=== PATIENT | male | born 1980 | race Caucasian/White ===

== ENCOUNTER 2020-06-10 20:02 | Emergency (ER) | payer OTHER ==
[2020-06-10 20:10] VITALS: TEMP 98.1
[2020-06-10] MEDS ORDERED: SODIUM CHLORIDE 0.9% 1,000 ML IV STA (20:19)
[2020-06-10] MEDS ORDERED: IBUPROFEN 800 MG TAB PO STA (20:20)
--- NOTE | 2020-06-10 20:27 | ED ---
Seizure HPI - General Chief Complaint: Seizure Stated Complaint: Seizure Time Seen by Provider: 06/10/20 20:13 Source: patient, EMS, RN notes reviewed Mode of arrival: EMS Limitations: no limitations - History of Present Illness Initial Comments: 40-year-old white male patient, alert and oriented 4, presents to the emergency room status post seizure at [facility]. Patient states he is there for a program to help him withdrawal from benzos. Patient states last he remembers waking up with them telling him he had a seizure. they gave him Ativan orally at 1910. Patient denies any injuries or pain, denies fevers, denies nausea vomiting or diarrhea. patient well-appearing in no acute distress. Patient denies any other medical history, denies surgical history. MD Complaint: seizure Description of Episode: loss of consciousness -: second(s) (60) Witnessed: yes - by bystander Trauma: No Seizure History: none Place: other ([facility]) Possible Precipitating Event: other (withdrawal from benzos) Associated Symptoms: other (temporal headache) Treatments Prior to Arrival: benzodiazepines (ativan) - Related Data Allergies Allergy/AdvReac Type Severity Reaction Status Date / Time iodine Allergy Unknown Verified 06/10/20 20:15 Childhood Review of Systems ROS Statement: Those systems with pertinent positive or pertinent negative responses have been documented in the HPI. ROS Other: All systems not noted in ROS Statement are negative. Past Medical History Past Medical History: Seizure Disorder History of Any Multi-Drug Resistant Organisms: None Reported Past Surgical History: No Surgical Hx Reported Past Psychological History: No Psychological Hx Reported Smoking Status: Current every day smoker Past Alcohol Use History: Occasional Past Drug Use History: Opiates General Exam Limitations: no limitations General appearance: alert, in no apparent distress Head exam: Present: atraumatic, normocephalic, normal inspection Eye exam: Present: normal appearance, PERRL, EOMI. Absent: scleral icterus, conjunctival injection, periorbital swelling ENT exam: Present: normal exam, mucous membranes moist Neck exam: Present: normal inspection, full ROM. Absent: tenderness, meningismus, lymphadenopathy Respiratory exam: Present: normal lung sounds bilaterally. Absent: respiratory distress, wheezes, rales, rhonchi, stridor Cardiovascular Exam: Present: regular rate, normal rhythm, normal heart sounds. Absent: systolic murmur, diastolic murmur, rubs, gallop, clicks GI/Abdominal exam: Present: soft, normal bowel sounds. Absent: distended, tenderness, guarding, rebound, rigid Extremities exam: Present: normal inspection, full ROM, normal capillary refill. Absent: tenderness, pedal edema, joint swelling, calf tenderness Back exam: Present: normal inspection, full ROM. Absent: tenderness, CVA tenderness (R), CVA tenderness (L) Neurological exam: Present: alert, oriented X3, CN II-XII intact Expanded Neurological exam: Absent: receptive aphasia, expressive aphasia, total aphasia, tremor Patient oriented to: Present: person, place, time Speech: Present: fluid speech Cranial nerves: EOM's Intact: Normal, Gag Reflex: Normal, Tongue Deviation: No rmal, Facial Sensation: Normal, Facial Palsy with Forehead Movement: Normal, Facial Palsy without Forehead Movement: Normal Cerebellar function: Finger to Nose: Normal Upper motor neuron: Black Neglect: Normal Motor strength exam: RUE: 5, LUE: 5, RLE: 5, LLE: 5 Eye Response: (4) open spontaneously Motor Response: (6) obeys commands Verbal Response: (5) oriented Janneth Total: 15 Psychiatric exam: Present: normal affect, normal mood Skin exam: Present: warm, dry, intact, normal color. Absent: rash Course Vital Signs 06/10/20 20:04 Temperature 98.1 F Pulse Rate 86 Respiratory 18 Rate Blood Pressure 129/75 O2 Sat by Pulse 96 Oximetry Medical Decision Making - Medical Decision Making Patient awake and alert, has no complaints, will discharge patient home to follow up with primary care doctor for withdrawal seizures. Case discussed with Dr. Suazo who is agreeable with this plan. - Lab Data Result diagrams: 06/10/20 21:02 06/10/20 21:02 Lab Results 06/10/20 06/10/20 Range/Units 21:02 21:02 WBC 14.1 H (3.8-10.6) k/uL RBC 4.88 (4.30-5.90) m/uL Hgb 14.8 (13.0-17.5) gm/dL Hct 42.7 (39.0-53.0) % MCV 87.5 (80.0-100.0) fL MCH 30.2 (25.0-35.0) pg MCHC 34.6 (31.0-37.0) g/dL RDW 12.5 (11.5-15.5) % Plt Count 260 (150-450) k/uL MPV 8.0 Neutrophils % 87 % Lymphocytes % 8 % Monocytes % 5 % Eosinophils % 0 % Basophils % 0 % Neutrophils # 12.2 H (1.3-7.7) k/uL Lymphocytes # 1.1 (1.0-4.8) k/uL Monocytes # 0.7 (0-1.0) k/uL Eosinophils # 0.1 (0-0.7) k/uL Basophils # 0.0 (0-0.2) k/uL Sodium 136 L (137-145) mmol/L Potassium 4.2 (3.5-5.1) mmol/L Chloride 103 (98-107) mmol/L Carbon Dioxide 24 (22-30) mmol/L Anion Gap 9 mmol/L BUN 17 (9-20) mg/dL Creatinine 0.61 L (0.66-1.25) mg/dL Est GFR (CKD-EPI)AfAm >90 (>60 ml/min/1.73 sqM) Est GFR (CKD-EPI)NonAf >90 (>60 ml/min/1.73 sqM) Glucose 107 H (74-99) mg/dL Calcium 10.0 (8.4-10.2) mg/dL Total Bilirubin 0.7 (0.2-1.3) mg/dL AST 23 (17-59) U/L ALT 17 (4-49) U/L Alkaline Phosphatase 84 (38-126) U/L Total Protein 7.9 (6.3-8.2) g/dL Albumin 4.8 (3.5-5.0) g/dL Disposition Clinical Impression: Withdrawal seizures Disposition: HOME SELF-CARE Condition: Good Instructions (If sedation given, give patient instructions): Nonepileptic Seizures (ED) Additional Instructions: Follow-up with the primary care doctor in 1 week. Please continue going to [facility] for guidance and care. Is patient prescribed a controlled substance at d/c from ED?: No Referrals: None,Stated [Primary Care Provider] - 1-2 days Time of Disposition: 22:02
[2020-06-10 21:13] LABS: Basophils % (A) 0 %; Eosinophils # (A) 0.1 k/uL (0-0.7); Eosinophils % (A) 0 %; HCT 42.7 % (39.0-53.0); HGB 14.8 gm/dL (13.0-17.5); Lymphocytes # (A) 1.1 k/uL (1.0-4.8); Lymphocytes % (A) 8 %; MCH 30.2 pg (25.0-35.0); MCHC 34.6 g/dL (31.0-37.0); MCV 87.5 fL (80.0-100.0); Monocytes # (A) 0.7 k/uL (0-1.0); Monocytes % (A) 5 %; Neutrophils # (A) 12.2 k/uL (1.3-7.7); Neutrophils % (A) 87 %; Platelet Count 260 k/uL (150-450); RBC 4.88 m/uL (4.30-5.90); RDW 12.5 % (11.5-15.5); WBC 14.1 k/uL (3.8-10.6)
[2020-06-10 21:23] LABS: ALT 17 U/L (4-49); AST 23 U/L (17-59); African American GFR (CKD) >90 (>60 ml/min/1.73 sqM); Albumin 4.8 g/dL (3.5-5.0); Alkaline Phosphatase 84 U/L (38-126); Anion Gap 9 mmol/L; Blood Urea Nitrogen 17 mg/dL (9-20); Carbon Dioxide 24 mmol/L (22-30); Chloride 103 mmol/L (98-107); Glucose 107 mg/dL (74-99); Non-African American GFR(CKD) >90 (>60 ml/min/1.73 sqM); Potassium 4.2 mmol/L (3.5-5.1); Sodium 136 mmol/L (137-145); Total Bilirubin 0.7 mg/dL (0.2-1.3); Total Protein 7.9 g/dL (6.3-8.2)
[2020-06-10 22:59] VITALS: BP 121/71; PULSE 82; RESP 16
== END 2020-06-10 22:30 | disposition home or self-care (01) ==
LOC: EC 20:02
DX: R56.9 Unspecified convulsions (principal); F17.200 Nicotine dependence, unspecified, uncomplicated
CPT/HCPCS: 36415; 80053; 85025; 99284